=== PATIENT | female | born 1950 | race American Indian/Alaskan Native ===

== ENCOUNTER 2016-12-30 09:09 | Outpatient (CLI) | payer MEDICARE, OTHER ==
--- NOTE | 2016-12-30 09:40 | Mammography Report ---
BONE DEXA:12/30/16 09:09:00 CLINICAL: Postmenopausal. No comparison. TECHNIQUE: Two site bone DEXA performed on an Hologic scanner. FINDINGS: The average BMD of the lumbar spine L1-L4 is 1.212g/cm squared with a T-score of +0.6 and a Z-score of +2.5. The average BMD of the left hip is 1.044g/cm squared with a T-score of +0.1 and a Z-score of +1.1. IMPRESSION: WHO classification: Normal with average fracture risk based on the spine and left hip measurements. RECOMMENDATION: Clinical correlation and routine screening. DEFINITIONS: BMD = Bone Mineral Density T-score = BMD related to mean peak bone mass of young adult (mean expressed in Standard Deviation) Z-score = Age matched BMD expressed in SD World Health Organization (WHO) Diagnostic Criteria Normal T-score > -1 SD Osteopenia T-score between -1 and -2.4 SD Osteoporosis T-score -2.5 SD or below NOTE: BMD is not the only risk factor for fracture. One should also consider factors such as the patient's age, risk of falling, previous osteoporotic fracture, family history of osteoporotic fractures, current smoker, and low body weight. Z-scores are not calculated if >80 years of age.
== END 2016-12-30 09:10 | disposition home or self-care (01) ==
LOC: SPVWC 09:09
PROVIDERS: ATTEND Family Medicine
DX: Z12.31 Encounter for screening mammogram for malignant neoplasm of breast (principal); Z78.0 Asymptomatic menopausal state
CPT/HCPCS: 77080

== ENCOUNTER 2017-11-09 09:47 | Outpatient (CLI) | payer MEDICARE ==
--- NOTE | 2017-11-09 10:30 | Mammography Report ---
RIGHT DIGITAL DIAGNOSTIC MAMMOGRAM : 11/09/17 09:47:00 CLINICAL: Abnormal screening mammogram. A report from [place] describes an asymmetry identified only on the right MLO view. COMPARISON:09/13/17 [place] [facility] screening mammogram FINDINGS: Lateralmedial and spot magnification MLO views of the right breast were performed and are negative. Normal fibroglandular densities with no persistent asymmetry. IMPRESSION: Negative Mammogram. BI-RADS CATEGORY: 1 -- Negative RECOMMENDATION: Routine mammographic screening in one year. ACR BI-RADS MAMMOGRAPHIC CODES: 0 = Needs additional imaging evaluation; 1 = Negative; 2 = Benign; 3 = Probably benign; 4 = Suspicious; 5 = Malignant; 6 = Known biopsy-proven malignancy COMMENT: 1. Dense breast tissue, i.e., adenosis, fibrocystic changes, etc., may obscure an underlying neoplasm. 2. Approximately 10% of cancers are not detected with mammography. 3. A negative mammography report should not delay biopsy if a clinically suspicious mass is present. COMMENT: Patient follow-up letters are generated via our [employer] application.
== END 2017-11-09 09:48 | disposition home or self-care (01) ==
LOC: SPVWC 09:47
PROVIDERS: ATTEND Family Medicine
DX: R92.8 Other abnormal and inconclusive findings on diagnostic imaging of breast (principal)

== ENCOUNTER 2018-11-12 14:06 | Outpatient (CLI) | payer MEDICARE ==
--- NOTE | 2018-11-13 07:57 | Mammography Report ---
BILATERAL DIGITAL SCREENING MAMMOGRAM with CAD: 11/12/18 14:06:00 CLINICAL: Routine screening. COMPARISON: 11/09/17 right mammogram FINDINGS: There are bilateral scattered areas of fibroglandular density.No mass, architectural distortion or suspicious calcifications. IMPRESSION: No mammographic evidence of malignancy. BI-RADS CATEGORY: 1 -- Negative RECOMMENDATION: Routine mammographic screening in one year. COMMENT: Patient follow-up letters are generated by our [employer] application.
== END 2018-11-12 14:07 | disposition home or self-care (01) ==
LOC: SPVWC 14:06
PROVIDERS: ATTEND Family Medicine
DX: Z12.31 Encounter for screening mammogram for malignant neoplasm of breast (principal)
CPT/HCPCS: 77067